=== PATIENT | female | born 1980 | race Caucasian/White ===

== ENCOUNTER 2016-10-26 20:34 | Emergency (ER) | payer OTHER ==
[~2016-10-26] VITALS: Ht 162.6 cm; Wt 132.0 kg
[2016-10-26 20:36] VITALS: Ht 162.6 cm; Wt 132.0 kg
--- NOTE | 2016-10-26 22:49 | ERD ---
ER Documentation Chief Complaint Date/Time DATE: 10/26/16 TIME: 22:45 Chief Complaint 13 wks , vag bleeding w/pelvic pain HPI This a 35-year-old female who presents to the emergency department today complaining of vaginal bleeding and spotting for the past 4-5 days and has been intermittent and now heavier. Patient states she also has some lower pelvic pain and some back pain. States her last menstrual period was on July 15, 2016. States that she did see her doctor but no ultrasound was done she was given vitamins and told "spotting is normal". Denies any nausea vomiting, fevers or chills ROS All systems reviewed and are negative except as per history of present illness. Medications Home Meds Active Scripts Acetaminophen* (Tylophen*) 500 Mg Capsule, 1 CAP PO Q6H Y for PAIN AND OR ELEVATED TEMP, #30 CAP Prov:BRAYDEN CRYSTAL PA-C 10/27/16 Allergies Allergies: Coded Allergies: No Known Allergy (Unverified , 07/06/15) PMhx/Soc Hx Alcohol Use: No Hx Substance Use: No Hx Tobacco Use: No Smoking Status: Never smoker Physical Exam Vitals Vital Signs Date Time Temp Pulse Resp B/P Pulse Ox O2 Delivery O2 Flow Rate FiO2 10/26/16 20:36 98.5 91 20 133/72 99 Physical Exam Const: Obese no acute distress Head: Atraumatic Eyes: Normal Conjunctiva ENT: Normal External Ears, Nose and Mouth. Neck: Full range of motion..~ No meningismus. Resp: Clear to auscultation bilaterally Cardio: Regular rate and rhythm, no murmurs Abd: Soft, diffuse pelvic pain, non distended. Normal bowel sounds Skin: No petechiae or rashes Back: No midline or flank tenderness Ext: No cyanosis, or edema Neur: Awake and alert Psych: Normal Mood and Affect Result Diagram: 10/26/165 Results 24 hrs Laboratory Tests Test 10/26/16 22:45 White Blood Count 6.110^3/ul Red Blood Count 3.8510^6/ul Hemoglobin 11.6g/dl Hematocrit 34.6% Mean Corpuscular Volume 89.9fl Mean Corpuscular Hemoglobin 30.1pg Mean Corpuscular Hemoglobin Concent 33.5g/dl Red Cell Distribution Width 13.2% Platelet Count 72602^3/UL Mean Platelet Volume 10.4fl Neutrophils % 71.4% Lymphocytes % 18.6% Monocytes % 7.5% Eosinophils % 1.5% Basophils % 0.3% Nucleated Red Blood Cells % 0.0/100WBC Neutrophils # 4.410^3/ul Lymphocytes # 1.110^3/ul Monocytes # 0.510^3/ul Eosinophils # 0.110^3/ul Basophils # 0.010^3/ul Nucleated Red Blood Cells # 0.010^3/ul Urine Color LT. YELLOW Urine Clarity CLEAR Urine pH 6.0 Urine Specific [place] 1.025 Urine Ketones 3+ Urine Nitrite NEGATIVE Urine Bilirubin NEGATIVE Urine Urobilinogen 0.2 E.U./dL Urine Leukocyte Esterase NEGATIVE Urine Microscopic RBC 2-5/HPF Urine Microscopic WBC 0-2/HPF Urine Squamous Epithelial Cells MODERATE Urine Bacteria MODERATE Urine Hemoglobin 3+ Urine Glucose NEGATIVE% Urine Total Protein TRACE Beta HCG, Quantitative 08329.0mIU/ml Current Medications Medications (Trade) Dose Ordered Sig/Emmanuel Route PRN Reason Start Time Stop Time Status Last Admin Dose Admin Acetaminophen (Tylenol Tab) 500 mg ONCE STAT PO 10/27/16 00:40 10/27/16 00:41 DC DIAGNOSTIC IMAGING REPORT Patient: JACINTA RASHID : 1980 Age: 35 Sex: F MR #: [id number] DOS: 10/26/16 0000 Ordering MD: BRAYDEN CRYSTAL PA-C Location: E Room/Bed: PROCEDURE: US OB. CLINICAL INDICATION: , pain. TECHNIQUE: Multiple sonographic images of the pelvis were obtained. Transabdominal imaging only was performed. The images were reviewed on a PACS workstation. COMPARISON: No prior studies are available for comparison. FINDINGS: There is a single viable intrauterine gestation. Cardiac activity is present with 134 beats per minute. There is a cephalic presentation. Measurements were made in order to determine age. The results are as follows: BPD = 2.54 cm HC = 9.85 cm AC = 8.47 cm FL = 1.48 cm Estimated gestational age of approximately 14 weeks 4 days. The estimated date of delivery is 04/22/2017. The EFW = 101 g. EFW percentile: 27% The placenta is posterior, grade 0. There is no evidence for an abruption. There is an adequate amount of amniotic fluid. The MVP measures 2.0 cm. IMPRESSION: 1. Single viable intrauterine gestation of approximately 14 weeks 4 days, based on ultrasound measurements. The estimated date of delivery is 04/22/2017. 2. EFW percentile: 27%. RPTAT: HTAR .Palomo Merino MD, MD Date Time Electronically viewed and signed by .Palomo Merino MD, on 10/27/2016 00:31 .R/ CC: BRAYDEN CRYSTAL PA-C Procedures/[facility] This a 35-year-old female who presents the emergency department today complaining of vaginal bleeding that is been intermittent for the past 4-5 days and now more frequent. Patient also reported some pelvic pain. She indicated she is approximately 13 weeks . Given this I did obtain complete OB workup Laboratory work no elevated white blood cell count. Her hemoglobin is very mildly decreased. Platelets are within normal limits. UA is negative for infection. Beta quant hCG 77173.0 Rh status O+ Ultrasound shows a single viable intrauterine gestation of approximately 14 weeks and 4 days based on ultrasound measurements. Estimated date of delivery is April 22, 2017. Estimated weight percentile 27%. There is an adequate amount of amniotic fluid. Cardiac activity is present 134 bpm Symptoms at this time is consistent with vaginal bleeding in early . There is no evidence of subchorionic hemorrhage on ultrasound or early failed . I have explained this to the patient. I have explained to her that she may continue to have some vaginal bleeding. Patient was given Tylenol here in the emergency department. I will give her prescription for Tylenol for home. Patient was instructed to follow-up with Dr. Cai for repeat beta quant in 48 hours. Patient is hemodynamically stable. At this time the patient is stable for discharge and outpatient management. Patient should follow up with their PCP in the next 1-2 days. They may return to the emergency department sooner for any persistent or worsening of symptoms. Patient understood and agreed with the plan. Departure Diagnosis: Primary Impression: Vaginal bleeding in patient at less than 20 weeks gestation Condition: Fair PROUSE,BRAYDEN M. PA-C October 26, 2016 22:49
[2016-10-26 23:08] LABS: ADD SCAN DIFF NO
[2016-10-26 23:10] LABS: BASOPHILS % 0.3 % (0.0-2.0); EOSINOPHILS # 0.1 10^3/ul (0.0-0.5); EOSINOPHILS % 1.5 % (0.0-7.0); HEMATOCRIT 34.6 % (37.0-47.0); HEMOGLOBIN 11.6 g/dl (12.0-16.0); LYMPHOCYTES # 1.1 10^3/ul (0.8-2.9); LYMPHOCYTES % 18.6 % (15.0-51.0); MEAN CORPUSCULAR HEMOGLOBIN 30.1 pg (29.0-33.0); MEAN CORPUSCULAR HGB CONC 33.5 g/dl (32.0-37.0); MEAN CORPUSCULAR VOLUME 89.9 fl (82.0-101.0); MEAN PLATELET VOLUME 10.4 fl (7.4-10.4); MONOCYTE # 0.5 10^3/ul (0.3-0.9); MONOCYTES % 7.5 % (0.0-11.0); NEUTROPHIL # 4.4 10^3/ul (1.6-7.5); NEUTROPHILS % 71.4 % (39.0-77.0); PLATELET COUNT 224 10^3/UL (140-415); RED BLOOD COUNT 3.85 10^6/ul (4.20-5.40); RED CELL DISTRIBUTION WIDTH 13.2 % (11.5-14.5); WHITE BLOOD COUNT 6.1 10^3/ul (4.8-10.8)
[2016-10-26 23:20] LABS: ADD UMIC YES; URINE BILIRUBIN (Dip) NEGATIVE (NEGATIVE); URINE BLOOD (Dip) 3+ (NEGATIVE); URINE COLOR LT. YELLOW (YELLOW); URINE GLUCOSE (Dip) NEGATIVE (NEGATIVE); URINE KETONES (Dip) 3+ (NEGATIVE); URINE LEUKOCYTE ESTERASE (Dip) NEGATIVE (NEGATIVE); URINE NITRITE (Dip) NEGATIVE (NEGATIVE); URINE TOTAL PROTEIN (Dip) TRACE (NEGATIVE); URINE UROBILINOGEN (Dip) 0.2 E.U./dL (0.1-1.0)
[2016-10-26 23:28] LABS: BACTERIA,URINE MODERATE; SQUAMOUS EPITHELIAL CELL,UR MODERATE
--- NOTE | 2016-10-27 00:32 | RADRPT ---
PROCEDURE: US OB. CLINICAL INDICATION: , pain. TECHNIQUE: Multiple sonographic images of the pelvis were obtained. Transabdominal imaging only w as performed. The images were reviewed on a PACS workstation. COMPARISON: No prior studies are available for comparison. FINDINGS: There is a single viable intrauterine gestation. Cardiac activity is present with 134 beats per minute. There is a cephalic presentation. Measurements were made in order to determine age. The results are as follows: BPD = 2.54 cm HC = 9.85 cm AC = 8.47 cm FL = 1.48 cm Estimated gestational age of approximately 14 weeks 4 days. The estimated date of delivery is 04/22/2017. The EFW = 101 g. EFW percentile: 27% The placenta is posterior, grade 0. There is no evidence for an abruption. There is an adequate amount of amniotic fluid. The MVP measures 2.0 cm. IMPRESSION: 1. Single viable intrauterine gestation of approximately 14 weeks 4 days, based on ultrasound measu rements. The estimated date of delivery is 04/22/2017. 2. EFW percentile: 27%. RPTAT: HTAR .Palomo Merino MD, Date Time Electronically viewed and signed by .Palomo Merino MD, on 10/27/2016 00:31 .R/
[2016-10-27] MEDS ORDERED: ACETAMINOPHEN 500 MG TAB PO STA (00:40)
[2016-10-27] MEDS ORDERED: ACET500C5 PO (00:42)
== END 2016-10-27 00:43 | disposition home or self-care (01) ==
LOC: FTE 20:34
DX: O20.9 Hemorrhage in early pregnancy, unspecified (principal); R10.2 Pelvic and perineal pain; Z3A.14 14 weeks gestation of pregnancy
CPT/HCPCS: 76805; 81001; 84702; 85025; 86900; 86901; Z7610; 36415; 81003

== ENCOUNTER 2018-08-29 21:56 | Emergency (ER) | payer OTHER ==
[~2018-08-29] VITALS: Ht 170.2 cm; Wt 127.3 kg
[~2018-08-29 21:56] MED LIST: ACET500C5 PO
[2018-08-29 22:04] VITALS: BP 153/89; PULSE 93; RESP 18; Ht 170.2 cm; Wt 127.3 kg
[2018-08-29] MEDS ORDERED: predniSONE 20 MG TAB PO ONE (22:30)
[2018-08-29] MEDS ORDERED: DIPHENHYDRAMINE 50 MG CAP PO ONE (22:30)
[2018-08-29] MEDS ORDERED: PREDNISOLONE ACET 0.12% 5 ML OPH RIGHT EYE ONE (22:30)
--- NOTE | 2018-08-29 23:21 | ERD ---
ER Documentation Chief Complaint Chief Complaint LEFT EYE SWELLING WITH FIXED 4 PUPIL, FLUID FILLED SAC, ITCHED THEN SWELLED HPI 37-year-old female, presents to the emergency department, complaining of acute onset of right eye discomfort after rubbing vigorously her eye approximately 2 hours prior to arrival. The patient is complaining of edema but no blurred vision, no pain, no ocular discharge. ROS All systems reviewed and are negative except as per history of present illness. Medications Home Meds Active Scripts Acetaminophen* (Tylophen*) 500 Mg Capsule, 1 CAP PO Q6H PRN for PAIN AND OR ELEVATED TEMP, #30 CAP Prov:BRAYDEN CRYSTAL PA-C 10/27/16 Allergies Allergies: Coded Allergies: No Known Allergy (Unverified , 07/06/15) PMhx/Soc Hx Alcohol Use: No Hx Substance Use: No Hx Tobacco Use: No Smoking Status: Never smoker FmHx Family History: No diabetes, No coronary disease Physical Exam Vitals Vital Signs Date Temp Pulse Resp B/P (MAP) Pulse Ox O2 O2 Flow FiO2 Time Delivery Rate 08/29/18 98.7 93 18 153/89 100 22:04 (110) Physical Exam Const: No acute distress Head: Atraumatic Eyes: OD: Significant chemosis, extraocular movements intact, PERRLA ENT: Normal External Ears, Nose and Mouth. Neck: Full range of motion. No meningismus. Resp: Clear to auscultation bilaterally Cardio: Regular rate and rhythm, no murmurs Abd: Soft, non tender, non distended. Normal bowel sounds Skin: No petechiae or rashes Back: No midline or flank tenderness Ext: No cyanosis, or edema Neur: Awake and alert Psych: Normal Mood and Affect Results 24 hrs Current Medications Medications Dose Sig/Emmanuel Start Time Status Last (Trade) Ordered Route PRN Stop Time Admin Dose Reason Admin Prednisone 40 mg ONCE ONCE 08/29/18 DC 08/29/18 (Prednisone) PO 22:30 08/29/18 22:26 22:31 50 mg ONCE ONCE 08/29/18 DC Diphenhydrami PO 22:30 08/29/18 ne HCl 22:31 (Benadryl) 1 drop ONCE ONCE 08/29/18 DC 08/29/18 Prednisolone RIGHT EYE 22:30 08/29/18 22:38 Acetate 22:31 (Pred Mild 0.12%) Procedures/MDM Differential diagnosis include but not limited to: infection bacterial/viral/fungal, iritis, scleritis, corneal abrasion, allergies, foreign body, glaucoma. Physical examination and clinical presentation consistent most likely with right chemosis. During the ED course the patient remained stable, no new complaints. Clinical impression discussed with patient who agrees with management. The patient is stable to be treated outpatient and will be discharged home; Some side effects of prescribed medications (headache, rash, nausea, vomiting, diarrhea, interactions with other medications) were reviewed. The patient was instructed to follow up with the primary care provider in the next 48h. If symptoms persist, worsen or new symptoms develop, then patient should return to the ED immediately. Disclaimer: Inadvertent spelling and grammatical errors are likely due to EHR/dictation software use and do not reflect on the overall quality of patient care. Also, please note that the electronic time recorded on this note does not necessarily reflect the actual time of the patient encounter. Departure Diagnosis: Primary Impression: Chemosis of right conjunctiva Condition: Stable Additional Instructions: Thank you very much for allowing us to participate in your care. Your health and safety is our top priority at [facility]. Call your primary care doctor TOMORROW for an appointment during the next 2-4 days and bring all the information and medications prescribed. Have prescriptions filled and follow precisely the directions on the label. If the symptoms get worse and your provider is unavailable, return to the Emergency Department immediately. IVETH PERALTA MD Aug 29, 2018 23:21
== END 2018-08-29 23:31 | disposition home or self-care (01) ==
LOC: FTE 21:56
DX: H11.422 Conjunctival edema, left eye (principal)
CPT/HCPCS: J7512; Z7502; Z7610; 99283